=== PATIENT | male | born 1930 | race Caucasian/White ===

== ENCOUNTER → 2016-06-04 | Outpatient (CLI) | payer BLACK LUNG, MEDICARE ==
[~2016-06-04] MED LIST: BROVANA15 MCG/2 M INH; BUDESONIDE0.5 MG/2 M INH; FLOMAX 0.4 MG0.4 MG PO; IMDUR ER TAB 6060 MG PO; LASIX40 MG PO; METOPROLOL TART25 MG PO; OXYGEN; POTASSIUM CHLO10 ME1 PO; PROSCAR5 MG PO; SPIRIVA18 MCG INH; VENTOLIN HFA 66.7 GM INH
== END ==
LOC: NM 10:56
DX: R07.9 Chest pain, unspecified (principal); R42 Dizziness and giddiness; R06.02 Shortness of breath; R55 Syncope and collapse; I51.7 Cardiomegaly; R94.30 Abnormal result of cardiovascular function study, unspecified
CPT/HCPCS: ECHO; 78452; 93017; 93306; A9502; J2785

== ENCOUNTER → 2016-06-06 | Outpatient (CLI) | payer BLACK LUNG, MEDICARE | LOC: HEART 5 13:16 | DX: R42 Dizziness and giddiness (principal); R55 Syncope and collapse ==

== ENCOUNTER → 2016-06-26 | Outpatient (CLI) | payer BLACK LUNG, MEDICARE | LOC: HEART 5 11:11 | DX: R42 Dizziness and giddiness (principal); R55 Syncope and collapse ==

== ENCOUNTER → 2016-07-18 | Outpatient (CLI) | payer BLACK LUNG, MEDICARE | LOC: HEART 5 10:38 | DX: R06.02 Shortness of breath (principal) | CPT/HCPCS: 71020-FX ==

== ENCOUNTER 2016-07-25 16:20 | Inpatient (IN) | payer MEDICARE ==
[~2016-07-25] VITALS: Ht 180.3 cm; Wt 72.6 kg
[2016-07-25] MEDS ORDERED: VENTOLIN HFA 66.7 GM INH (17:41)
[2016-07-25] MEDS ORDERED: FLOMAX 0.4 MG0.4 MG PO (17:41)
[2016-07-25] MEDS ORDERED: LASIX40 MG PO (17:42)
[2016-07-25] MEDS ORDERED: IMDUR ER TAB 6060 MG PO (17:42)
[2016-07-25] MEDS ORDERED: POTASSIUM CHLO10 ME1 PO (17:44)
[2016-07-25] MEDS ORDERED: PROSCAR5 MG PO (17:44)
[2016-07-25] MEDS ORDERED: METOPROLOL TART25 MG PO (17:46)
[2016-07-25] MEDS ORDERED: BROVANA15 MCG/2 M INH (17:47)
[2016-07-25] MEDS ORDERED: SPIRIVA18 MCG INH (17:47)
[2016-07-25] MEDS ORDERED: BUDESONIDE0.5 MG/2 M INH (17:48)
[2016-07-25 18:31] LABS: HEMOGLOBIN 10.2 gm/dl (14.0-17.5); RED BLOOD COUNT 3.36 M/UL (4.20-5.50); WHITE BLOOD COUNT 22.6 K/UL (4.5-11.0)
[2016-07-26 07:31] LABS: HEMOGLOBIN 8.7 gm/dl (14.0-17.5); WHITE BLOOD COUNT 18.9 K/UL (4.5-11.0)
[2016-07-26 07:32] LABS: RED BLOOD COUNT 2.92 M/UL (4.20-5.50)
[2016-07-26 07:54] LABS: BUN/CREATININE RATIO 40 (0-10)
[2016-07-26 12:10] LABS: RED BLOOD COUNT 2.97 M/UL (4.20-5.50)
[2016-07-26 15:33] LABS: HEMOGLOBIN 9.3 gm/dl (14.0-17.5)
[2016-07-27 03:37] LABS: HEMOGLOBIN 9.1 gm/dl (14.0-17.5); RED BLOOD COUNT 2.95 M/UL (4.20-5.50); WHITE BLOOD COUNT 26.8 K/UL (4.5-11.0)
[2016-07-27 11:24] LABS: BUN/CREATININE RATIO 36 (0-10)
[2016-07-28 06:47] LABS: HEMOGLOBIN 9.4 gm/dl (14.0-17.5); RED BLOOD COUNT 3.09 M/UL (4.20-5.50); WHITE BLOOD COUNT 24.7 K/UL (4.5-11.0)
[2016-07-28 07:02] LABS: BUN/CREATININE RATIO 40 (0-10)
[2016-07-29 03:04] LABS: HEMOGLOBIN 8.5 gm/dl (14.0-17.5); RED BLOOD COUNT 2.86 M/UL (4.20-5.50); WHITE BLOOD COUNT 21.7 K/UL (4.5-11.0)
[2016-07-29 09:23] LABS: BUN/CREATININE RATIO 43 (0-10)
[2016-07-30 03:23] LABS: RED BLOOD COUNT 2.65 M/UL (4.20-5.50); WHITE BLOOD COUNT 20.9 K/UL (4.5-11.0)
[2016-07-30 03:42] LABS: BUN/CREATININE RATIO 39 (0-10)
[2016-07-31 03:35] LABS: HEMOGLOBIN 9.2 gm/dl (14.0-17.5)
[2016-07-31 03:37] LABS: RED BLOOD COUNT 3.06 M/UL (4.20-5.50)
[2016-07-31] MEDS ORDERED: OXYGEN (12:04)
== END 2016-07-31 11:00 | DRG 180 ==
LOC: MED SURG 4 16:20 → PROG CARE 16:50 → MED SURG 4 17:06 → PROG CARE 07-26 14:30
PROVIDERS: ADMIT Internal Medicine
DX: C78.00 Secondary malignant neoplasm of unspecified lung (principal); I26.99 Other pulmonary embolism without acute cor pulmonale; C78.7 Secondary malignant neoplasm of liver and intrahepatic bile duct; J44.1 Chronic obstructive pulmonary disease with (acute) exacerbation; E87.1 Hypo-osmolality and hyponatremia; N17.9 Acute kidney failure, unspecified; C79.51 Secondary malignant neoplasm of bone; I82.409 Acute embolism and thrombosis of unspecified deep veins of unspecified lower extremity; J60 Coalworker's pneumoconiosis; N40.0 Benign prostatic hyperplasia without lower urinary tract symptoms; H91.90 Unspecified hearing loss, unspecified ear; N18.9 Chronic kidney disease, unspecified; R60.0 Localized edema; E87.5 Hyperkalemia; R63.4 Abnormal weight loss; D64.9 Anemia, unspecified; D47.3 Essential (hemorrhagic) thrombocythemia; Z87.891 Personal history of nicotine dependence; Z80.9 Family history of malignant neoplasm, unspecified; Z66 Do not resuscitate
CPT/HCPCS: ECHO; 36415; 36600; 70470; 71020; 71250; 76705; 80048; 80053; 80307; 81001; 82550; 82553; 82570; 82803; 83605; 83880; 84156; 84439; 84443; 84484; 85014; 85018; 85025; 85027; 85610; 85730; 87040; 87086; 93005; 93306; 93970; 94640; 94664; J1335; J1644; J2920; J2930; J7030; J7050; Q9965